=== PATIENT | male | born 1940 | race Caucasian/White ===

== ENCOUNTER 2017-03-15 13:42 | Emergency (ER) | payer MEDICARE, BC, SELFPAY | END 2017-03-15 17:43 | disposition short-term general hospital (02) | PROVIDERS: Emergency Provider Emergency Medicine; Family Provider Internal Medicine Adolescent Medicine; Visit Provider Emergency Medicine | DX: Z79.82 Long term (current) use of aspirin (principal); I10 Essential (primary) hypertension; E78.5 Hyperlipidemia, unspecified; Z79.4 Long term (current) use of insulin | CPT/HCPCS: 70450; 71020; 80053; 82550; 82553; 84484; 85025; 93005; 93041; 99285 ==

== ENCOUNTER 2017-04-17 08:31 | Outpatient (CLI) | payer MEDICARE, BC, SELFPAY ==
[2017-04-17 15:19] LABS: PHA INR Fingerstick 2.8 (0.9-1.1)
== END 2017-04-17 15:51 | disposition home or self-care (01) ==
LOC: ACC 08:33
PROVIDERS: Family Provider Internal Medicine Adolescent Medicine; PCP Internal Medicine Adolescent Medicine; Visit Provider Internal Medicine Adolescent Medicine
DX: I72.9 Aneurysm of unspecified site (principal); I63.9 Cerebral infarction, unspecified; Z79.01 Long term (current) use of anticoagulants
CPT/HCPCS: 85610; 99211; G0463

== ENCOUNTER 2017-06-11 10:30 | Outpatient (CLI) | payer MEDICARE, BC, SELFPAY ==
[2017-06-11 11:12] LABS: PHA INR Fingerstick 2.5 (0.9-1.1)
== END 2017-06-11 11:40 | disposition home or self-care (01) ==
LOC: ACC 10:31
PROVIDERS: PCP Internal Medicine Adolescent Medicine; Visit Provider Internal Medicine Adolescent Medicine
DX: Z79.01 Long term (current) use of anticoagulants (principal); Z51.81 Encounter for therapeutic drug level monitoring; I63.9 Cerebral infarction, unspecified
CPT/HCPCS: 85610; 99211; G0463

== ENCOUNTER 2017-07-24 08:59 | Outpatient (CLI) | payer MEDICARE, BC, SELFPAY ==
[2017-07-24 11:27] LABS: PHA INR Fingerstick 2.5 (0.9-1.1)
== END 2017-07-24 11:47 | disposition home or self-care (01) ==
LOC: ACC 09:01
PROVIDERS: PCP Internal Medicine Adolescent Medicine; Visit Provider Internal Medicine Adolescent Medicine
DX: Z79.01 Long term (current) use of anticoagulants (principal); Z51.81 Encounter for therapeutic drug level monitoring; I72.9 Aneurysm of unspecified site; Z86.73 Personal history of transient ischemic attack (TIA), and cerebral infarction without residual deficits
CPT/HCPCS: 85610; 99211; G0463

== ENCOUNTER → 2017-08-02 09:44 | Outpatient (CLI) | payer MEDICARE, BC, SELFPAY ==
[2017-08-02 10:37] LABS: Basophils % 0.4 % (0.1-2.0); Eosinophils # 0.1 K/mm3 (0.0-0.4); Eosinophils % 1.8 % (0.1-12.0); Hematocrit 47.6 % (42.0-52.0); Hemoglobin 16.1 g/dL (14.1-18.0); Lymphocytes # 1.3 K/mm3 (0.7-4.5); Lymphocytes % 20.3 K/mm3 (10-50); Mean Corpuscular HGB Conc 33.7 g/dL (31.8-35.4); Mean Corpuscular Hemoglobin 31.7 pg (27.0-31.2); Mean Corpuscular Volume 93.9 fl (80-94); Mean Platelet Volume 9.1 fl (7.4-10.4); Monocytes # 0.5 K/mm3 (0.1-1.0); Monocytes % 8.6 % (1.7-9.3); Neutrophils # 4.2 K/mm3 (1.8-7.8); Neutrophils % 68.9 % (37.0-80.0); Platelet Count 152 K/mm3 (142-424); Red Blood Count 5.07 M/mm3 (4.60-6.20); Red Cell Distribution Width 12.9 % (11.5-17.5); White Blood Count 6.1 K/mm3 (4.8-10.8)
[2017-08-02 12:36] LABS: Alanine Aminotransferase 32 U/L (12-78); Albumin Level 3.8 gm/dL (3.4-5.0); Albumin/Globulin Ratio 1.3 (1.1-1.8); Alkaline Phosphatase 57 U/L (46-116); Anion Gap 17.3 mEq/L (5-15); Aspartate Amino Transferase 25 U/L (15-37); Bilirubin,Total 0.5 mg/dL (0.2-1.0); Blood Urea Nitrogen 13 mg/dL (7-18); Calcium 9.2 mg/dL (8.5-10.1); Carbon Dioxide 23 mmol/L (21.0-32.0); Chloride 106 mmol/L (98-107); Chol/HDL Ratio 3.7 (1-3.5); Cholesterol 140 mg/dL (140-200); Creatinine,Serum 0.84 mg/dL (0.70-1.30); Estimated Glomerular Filt Rate 89 ml/min (>60); Ferritin 244 ng/mL (8-388); GFR (African American) 107 ML/MIN (>60); Glucose 95 mg/dL (74-106); HDL Cholesterol 38 mg/dL (27-67); LDL Cholesterol 81 mg/dL (0-130); Magnesium 2.2 mg/dL (1.4-2.2); Potassium 4.3 mmoL/L (3.5-5.1); Sodium 142 mmol/L (136-145); Thyroid Stimulating Hormone 2.53 uIU/ml (0.358-3.740); Total Protein,Serum 6.8 gm/dL (6.4-8.2); Triglycerides 105 mg/dL (30-200); VLDL Cholesterol 21 mg/dL (0-40)
[2017-08-04 06:29] LABS: Vitamin B12 608 pg/mL (232-1245); Vitamin D 25 Hydroxy 42.3 ng/mL (30.0-100.0)
== END ==
PROVIDERS: Visit Provider Internal Medicine Adolescent Medicine
DX: M79.1 Myalgia (principal); E78.4 Other hyperlipidemia; M25.562 Pain in left knee
CPT/HCPCS: 36415; 80053; 80061; 82607; 82652; 82728; 83735; 84443; 85025

== ENCOUNTER 2017-09-18 08:42 | Outpatient (CLI) | payer MEDICARE, BC, SELFPAY ==
[2017-09-18 09:59] LABS: PHA INR Fingerstick 2.4 (0.9-1.1)
== END 2017-09-18 10:01 | disposition home or self-care (01) ==
LOC: ACC 08:43
PROVIDERS: Family Provider Internal Medicine Adolescent Medicine; PCP Internal Medicine Adolescent Medicine; Visit Provider Internal Medicine Adolescent Medicine
DX: Z79.01 Long term (current) use of anticoagulants (principal); Z51.81 Encounter for therapeutic drug level monitoring; I72.9 Aneurysm of unspecified site
CPT/HCPCS: 85610; 99211; G0463

== ENCOUNTER 2017-11-13 08:49 | Outpatient (CLI) | payer MEDICARE, BC, SELFPAY ==
[2017-11-13 13:36] LABS: PHA INR Fingerstick 2.2 (0.9-1.1)
== END 2017-11-13 13:46 | disposition home or self-care (01) ==
LOC: ACC 08:50
PROVIDERS: PCP Internal Medicine Adolescent Medicine; Visit Provider Internal Medicine Adolescent Medicine
DX: Z79.01 Long term (current) use of anticoagulants (principal); Z51.81 Encounter for therapeutic drug level monitoring
CPT/HCPCS: 85610; 99211; G0463

== ENCOUNTER 2018-02-03 08:37 | Outpatient (CLI) | payer MEDICARE, BC, SELFPAY ==
[2018-02-03 10:35] LABS: Basophils % 0.3 % (0.1-2.0); Eosinophils # 0.1 K/mm3 (0.0-0.4); Eosinophils % 1.8 % (0.1-12.0); Hematocrit 48.7 % (42.0-52.0); Hemoglobin 16.1 g/dL (14.1-18.0); Lymphocytes # 1.3 K/mm3 (0.7-4.5); Lymphocytes % 17.8 % (10-50); Mean Corpuscular HGB Conc 33.1 g/dL (31.8-35.4); Mean Corpuscular Hemoglobin 31.4 pg (27.0-31.2); Mean Corpuscular Volume 94.8 fl (80-94); Mean Platelet Volume 8.3 fl (7.4-10.4); Monocytes # 0.6 K/mm3 (0.1-1.0); Monocytes % 8.4 % (1.7-9.3); Neutrophils # 5.3 K/mm3 (1.8-7.8); Neutrophils % 71.7 % (37.0-80.0); Platelet Count 178 K/mm3 (142-424); Red Blood Count 5.13 M/mm3 (4.60-6.20); Red Cell Distribution Width 13.4 % (11.5-17.5); White Blood Count 7.4 K/mm3 (4.8-10.8)
[2018-02-03 12:12] LABS: Alanine Aminotransferase 28 U/L (12-78); Albumin Level 3.6 gm/dL (3.4-5.0); Albumin/Globulin Ratio 1.2 (1.1-1.8); Alkaline Phosphatase 65 U/L (46-116); Anion Gap 14.4 mEq/L (5-15); Aspartate Amino Transferase 23 U/L (15-37); Bilirubin,Total 0.6 mg/dL (0.2-1.0); Blood Urea Nitrogen 12 mg/dL (7-18); Calcium 8.6 mg/dL (8.5-10.1); Carbon Dioxide 27 mmol/L (21.0-32.0); Chloride 103 mmol/L (98-107); Estimated Glomerular Filt Rate 82 ml/min (>60); GFR (African American) 99 ML/MIN (>60); Glucose 83 mg/dL (74-106); Potassium 4.4 mmoL/L (3.5-5.1); Prostate Specific Ag Screen 6.8 ng/mL (0.0-4.0); Sodium 140 mmol/L (136-145); Thyroid Stimulating Hormone 2.55 uIU/ml (0.358-3.740); Total Protein,Serum 6.6 gm/dL (6.4-8.2)
[2018-02-03 15:27] LABS: PHA INR Fingerstick 1.8 (0.9-1.1)
[2018-02-03 16:38] LABS: Chol/HDL Ratio 3.6 (1-3.5); Cholesterol 130 mg/dL (140-200); HDL Cholesterol 36 mg/dL (27-67); LDL Cholesterol 71 mg/dL (0-130); Triglycerides 113 mg/dL (30-200); VLDL Cholesterol 23 mg/dL (0-40)
[2018-02-04 11:46] LABS: Vitamin B12 499 pg/mL (232-1245); Vitamin D 25 Hydroxy 48.2 ng/mL (30.0-100.0)
[2018-02-05 09:18] LABS: PSA, Free 0.91 ng/mL; Prostate Specific Ag 5.4 ng/mL (0.0-4.0)
== END 2018-02-03 15:36 | disposition home or self-care (01) ==
PROVIDERS: PCP Internal Medicine Adolescent Medicine; Visit Provider Internal Medicine Adolescent Medicine
DX: Z00.00 Encounter for general adult medical examination without abnormal findings (principal); E78.5 Hyperlipidemia, unspecified; I25.10 Atherosclerotic heart disease of native coronary artery without angina pectoris; R27.0 Ataxia, unspecified; Z51.81 Encounter for therapeutic drug level monitoring; Z79.01 Long term (current) use of anticoagulants; Z12.5 Encounter for screening for malignant neoplasm of prostate; R97.20 Elevated prostate specific antigen [PSA]
CPT/HCPCS: 36415; 80053; 80061; 82607; 82652; 84153; 84154; 84443; 85025; 85610; 99211; G0103; G0463

== ENCOUNTER 2018-03-26 07:59 | Outpatient (CLI) | payer MEDICARE, BC, SELFPAY ==
[2018-03-26 15:32] LABS: PHA INR Fingerstick 3.3 (0.9-1.1)
== END 2018-03-26 15:34 | disposition home or self-care (01) ==
LOC: ACC 08:01
PROVIDERS: PCP Internal Medicine Adolescent Medicine; Visit Provider Internal Medicine Adolescent Medicine
DX: Z51.81 Encounter for therapeutic drug level monitoring (principal); Z79.01 Long term (current) use of anticoagulants
CPT/HCPCS: 85610; 99211; G0463

== ENCOUNTER 2018-05-07 08:24 | Outpatient (CLI) | payer MEDICARE, BC, SELFPAY ==
[2018-05-07 15:08] LABS: PHA INR Fingerstick 2.7 (0.9-1.1)
== END 2018-05-07 15:11 | disposition home or self-care (01) ==
LOC: ACC 08:25
PROVIDERS: PCP Internal Medicine Adolescent Medicine; Visit Provider Internal Medicine Adolescent Medicine
DX: Z51.81 Encounter for therapeutic drug level monitoring (principal); Z79.01 Long term (current) use of anticoagulants
CPT/HCPCS: 85610; 99211; G0463

== ENCOUNTER 2018-06-18 08:35 | Outpatient (CLI) | payer MEDICARE, BC, SELFPAY ==
[2018-06-18 09:46] LABS: PHA INR Fingerstick 2.6 (0.9-1.1)
== END 2018-06-18 09:47 | disposition home or self-care (01) ==
LOC: ACC 08:36
PROVIDERS: PCP Internal Medicine Adolescent Medicine; Visit Provider Internal Medicine Adolescent Medicine
DX: Z51.81 Encounter for therapeutic drug level monitoring (principal); Z79.01 Long term (current) use of anticoagulants
CPT/HCPCS: 85610; 99211; G0463

== ENCOUNTER 2018-08-04 08:15 | Outpatient (CLI) | payer MEDICARE, BC, SELFPAY ==
[2018-08-04 10:06] LABS: Basophils % 0.3 % (0.1-2.0); Eosinophils # 0.1 K/mm3 (0.0-0.4); Eosinophils % 2.4 % (0.1-12.0); Hematocrit 48.7 % (42.0-52.0); Hemoglobin 16.5 g/dL (14.1-18.0); Lymphocytes # 1.4 K/mm3 (0.7-4.5); Lymphocytes % 23.9 % (10-50); Mean Corpuscular HGB Conc 33.8 g/dL (31.8-35.4); Mean Corpuscular Hemoglobin 31.9 pg (27.0-31.2); Mean Corpuscular Volume 94.5 fl (80-94); Mean Platelet Volume 9.2 fl (7.4-10.4); Monocytes # 0.6 K/mm3 (0.1-1.0); Monocytes % 10.8 % (1.7-9.3); Neutrophils # 3.7 K/mm3 (1.8-7.8); Neutrophils % 62.5 % (37.0-80.0); Platelet Count 180 K/mm3 (142-424); Red Blood Count 5.16 M/mm3 (4.60-6.20); Red Cell Distribution Width 12.9 % (11.5-17.5); White Blood Count 5.9 K/mm3 (4.8-10.8)
[2018-08-04 10:45] LABS: Alanine Aminotransferase 30 U/L (12-78); Albumin/Globulin Ratio 1.2 (1.1-1.8); Alkaline Phosphatase 78 U/L (46-116); Anion Gap 14.7 mEq/L (5-15); Aspartate Amino Transferase 16 U/L (15-37); Bilirubin,Total 0.6 mg/dL (0.2-1.0); Blood Urea Nitrogen 11 mg/dL (7-18); Calcium 8.8 mg/dL (8.5-10.1); Carbon Dioxide 28 mmol/L (21.0-32.0); Chloride 103 mmol/L (98-107); Chol/HDL Ratio 3.8 (1-3.5); Cholesterol 130 mg/dL (140-200); Creatinine,Serum 0.96 mg/dL (0.70-1.30); Estimated Glomerular Filt Rate 76 ml/min (>60); GFR (African American) 92 ML/MIN (>60); Globulin 3.4 gm/dl (1.3-3.2); Glucose 93 mg/dL (74-106); HDL Cholesterol 34 mg/dL (27-67); LDL Cholesterol 76 mg/dL (0-130); Potassium 4.7 mmoL/L (3.5-5.1); Sodium 141 mmol/L (136-145); Total Protein,Serum 7.4 gm/dL (6.4-8.2); Triglycerides 102 mg/dL (30-200); VLDL Cholesterol 20 mg/dL (0-40)
[2018-08-04 11:57] LABS: PHA INR Fingerstick 2.1 (0.9-1.1)
[2018-08-05 14:33] LABS: Vitamin B12 567 pg/mL (232-1245); Vitamin D 25 Hydroxy 74.1 ng/mL (30.0-100.0)
== END 2018-08-04 12:03 | disposition home or self-care (01) ==
LOC: ACC 08:16
PROVIDERS: PCP Internal Medicine Adolescent Medicine; Visit Provider Internal Medicine Adolescent Medicine
DX: Z00.00 Encounter for general adult medical examination without abnormal findings (principal); I10 Essential (primary) hypertension; E78.5 Hyperlipidemia, unspecified; E55.9 Vitamin D deficiency, unspecified; Z51.81 Encounter for therapeutic drug level monitoring; Z79.01 Long term (current) use of anticoagulants
CPT/HCPCS: 36415; 80053; 80061; 82607; 82652; 85025; 85610; 99211; G0463

== ENCOUNTER 2018-09-29 08:30 | Outpatient (CLI) | payer MEDICARE, BC, SELFPAY ==
[2018-09-29 11:51] LABS: PHA INR Fingerstick 2.1 (0.9-1.1)
== END 2018-09-29 12:03 | disposition home or self-care (01) ==
LOC: ACC 08:32
PROVIDERS: PCP Internal Medicine Adolescent Medicine; Visit Provider Internal Medicine Adolescent Medicine
DX: Z51.81 Encounter for therapeutic drug level monitoring (principal); Z79.01 Long term (current) use of anticoagulants
CPT/HCPCS: 85610; 99211; G0463

== ENCOUNTER 2018-12-08 08:31 | Outpatient (CLI) | payer MEDICARE, BC, SELFPAY ==
[2018-12-08 10:45] LABS: PHA INR Fingerstick 2.7 (0.9-1.1)
== END 2018-12-08 10:51 | disposition home or self-care (01) ==
LOC: ACC 08:32
PROVIDERS: PCP Internal Medicine Adolescent Medicine; Visit Provider Internal Medicine Adolescent Medicine
DX: Z51.81 Encounter for therapeutic drug level monitoring (principal); Z79.01 Long term (current) use of anticoagulants
CPT/HCPCS: 85610; 99211; G0463

== ENCOUNTER 2019-03-11 08:26 | Outpatient (CLI) | payer MEDICARE, BC, SELFPAY ==
[2019-03-11 10:10] LABS: Basophils # 0.1 K/mm3 (0-0.2); Basophils % 0.6 % (0.1-2.0); Eosinophils # 0.3 K/mm3 (0.0-0.4); Eosinophils % 3.9 % (0.1-12.0); Hematocrit 46.6 % (42.0-52.0); Hemoglobin 14.9 g/dL (14.1-18.0); Lymphocytes # 1.3 K/mm3 (0.7-4.5); Mean Corpuscular HGB Conc 31.9 g/dL (31.8-35.4); Mean Corpuscular Hemoglobin 31.3 pg (27.0-31.2); Mean Corpuscular Volume 98.1 fl (80-94); Mean Platelet Volume 8.6 fl (7.4-10.4); Monocytes # 0.7 K/mm3 (0.1-1.0); Monocytes % 8.6 % (1.7-9.3); Neutrophils # 5.9 K/mm3 (1.8-7.8); Neutrophils % 70.9 % (37.0-80.0); Platelet Count 260 K/mm3 (142-424); Red Blood Count 4.75 M/mm3 (4.60-6.20); Red Cell Distribution Width 13.6 % (11.5-17.5); White Blood Count 8.3 K/mm3 (4.8-10.8)
[2019-03-11 10:20] LABS: Prothrombin Time 32.4 seconds (9.4-11.8)
[2019-03-11 11:51] LABS: Alanine Aminotransferase 39 U/L (12-78); Albumin Level 3.3 gm/dL (3.4-5.0); Alkaline Phosphatase 58 U/L (46-116); Anion Gap 11.7 mEq/L (5-15); Aspartate Amino Transferase 27 U/L (15-37); Bilirubin,Total 0.4 mg/dL (0.2-1.0); Blood Urea Nitrogen 10 mg/dL (7-18); Calcium 8.3 mg/dL (8.5-10.1); Carbon Dioxide 29 mmol/L (21.0-32.0); Chloride 105 mmol/L (98-107); Chol/HDL Ratio 4.3 (1-3.5); Cholesterol 129 mg/dL (140-200); Creatinine,Serum 0.95 mg/dL (0.70-1.30); Estimated Glomerular Filt Rate 76 ml/min (>60); GFR (African American) 93 ML/MIN (>60); Globulin 3.2 gm/dl (1.3-3.2); Glucose 89 mg/dL (74-106); HDL Cholesterol 30 mg/dL (27-67); LDL Cholesterol 79 mg/dL (0-130); Potassium 4.7 mmoL/L (3.5-5.1); Sodium 141 mmol/L (136-145); Thyroid Stimulating Hormone 2.19 uIU/ml (0.358-3.740); Total Protein,Serum 6.5 gm/dL (6.4-8.2); Triglycerides 100 mg/dL (30-200); VLDL Cholesterol 20 mg/dL (0-40)
[2019-03-11 14:10] LABS: PHA INR Fingerstick 3.4 (0.9-1.1)
== END 2019-03-11 14:12 | disposition home or self-care (01) ==
PROVIDERS: PCP Internal Medicine Adolescent Medicine; Visit Provider Internal Medicine Adolescent Medicine
DX: Z51.81 Encounter for therapeutic drug level monitoring (principal); Z79.01 Long term (current) use of anticoagulants; Z79.899 Other long term (current) drug therapy
CPT/HCPCS: 36415; 80053; 80061; 84443; 85025; 85610; 99211; G0463

== ENCOUNTER 2019-04-01 08:54 | Outpatient (CLI) | payer MEDICARE, BC, SELFPAY ==
[2019-04-01 10:49] LABS: PHA INR Fingerstick 2.5 (0.9-1.1)
== END 2019-04-01 10:55 | disposition home or self-care (01) ==
LOC: ACC 08:55
PROVIDERS: PCP Internal Medicine Adolescent Medicine; Visit Provider Internal Medicine Adolescent Medicine
DX: Z51.81 Encounter for therapeutic drug level monitoring (principal); Z79.01 Long term (current) use of anticoagulants
CPT/HCPCS: 85610; 99211; G0463

== ENCOUNTER → 2019-12-09 10:03 | Outpatient (CLI) | payer MEDICARE, BC, SELFPAY ==
[2019-12-09 10:22] LABS: Basophils % 0.6 % (0.1-2.0); Eosinophils # 0.2 K/mm3 (0.0-0.4); Eosinophils % 2.8 % (0.1-12.0); Hematocrit 46.9 % (42.0-52.0); Hemoglobin 16.5 g/dL (14.1-18.0); Lymphocytes # 1.2 K/mm3 (0.7-4.5); Lymphocytes % 20.8 % (10-50); Mean Corpuscular HGB Conc 35.1 g/dL (31.8-35.4); Mean Corpuscular Volume 94.2 fl (80-94); Mean Platelet Volume 9.8 fl (7.4-10.4); Monocytes # 0.6 K/mm3 (0.1-1.0); Monocytes % 10.9 % (1.7-9.3); Neutrophils # 3.7 K/mm3 (1.8-7.8); Neutrophils % 64.9 % (37.0-80.0); Platelet Count 161 K/mm3 (142-424); Red Blood Count 4.98 M/mm3 (4.60-6.20); Red Cell Distribution Width 13.5 % (11.5-17.5); White Blood Count 5.6 K/mm3 (4.8-10.8)
[2019-12-09 10:47] LABS: Chloride 102 mmol/L (98-107); Potassium 4.4 mmoL/L (3.5-5.1); Sodium 139 mmol/L (136-145)
[2019-12-09 10:49] LABS: Alanine Aminotransferase 16 U/L (12-78); Albumin Level 3.9 g/dl (3.5-5.0); Albumin/Globulin Ratio 1.7 (1.1-1.8); Alkaline Phosphatase 59 U/L (38-126); Anion Gap 13.4 mEq/L (5-15); Aspartate Amino Transferase 25 U/L (17-59); Bilirubin,Total 0.9 mg/dl (0.2-1.3); Blood Urea Nitrogen 13 mg/dl (9-20); Carbon Dioxide 28 mmol/L (22.0-30.0); Cholesterol 118 mg/dl (140-200); Estimated Glomerular Filt Rate 81 ml/min (>60); GFR (African American) 98 ML/MIN (>60); Globulin 2.3 g/dL (1.3-3.2); Total Protein,Serum 6.2 g/dl (6.3-8.2); Triglycerides 110 mg/dl (30-150); VLDL Cholesterol 22 mg/dL (0-40)
[2019-12-09 10:50] LABS: Calcium 9.1 mg/dl (8.4-10.2); Chol/HDL Ratio 3.7 (1-3.5); Glucose 100 mg/dl (74-100); HDL Cholesterol 32 mg/dl (40-60); Magnesium 2.1 mg/dl (1.6-2.3)
[2019-12-09 11:20] LABS: 25-OH Vitamin D, Total 105 ng/mL (30-100); Thyroid Stimulating Hormone 3.07 uIU/mL (0.465-4.68)
[2019-12-09 11:52] LABS: Vitamin B12 469 pg/mL (239-931)
== END ==
PROVIDERS: Visit Provider Internal Medicine Adolescent Medicine
DX: R42 Dizziness and giddiness (principal); I25.10 Atherosclerotic heart disease of native coronary artery without angina pectoris; E78.5 Hyperlipidemia, unspecified; E55.9 Vitamin D deficiency, unspecified
CPT/HCPCS: 36415; 80053; 80061; 82306; 82607; 83735; 84443; 85025

== ENCOUNTER → 2020-04-07 10:06 | Outpatient (CLI) | payer MEDICARE, BC, SELFPAY ==
[2020-04-07 10:44] LABS: Basophils % 0.5 % (0.1-2.0); Eosinophils # 0.1 K/mm3 (0.0-0.4); Eosinophils % 2.2 % (0.1-12.0); Hematocrit 54.5 % (42.0-52.0); Lymphocytes # 1.3 K/mm3 (0.7-4.5); Lymphocytes % 21.2 % (10-50); Mean Corpuscular HGB Conc 33.4 g/dL (31.8-35.4); Mean Corpuscular Hemoglobin 32.3 pg (27.0-31.2); Mean Corpuscular Volume 96.5 fl (80-94); Monocytes # 0.5 K/mm3 (0.1-1.0); Monocytes % 8.2 % (1.7-9.3); Neutrophils # 4.2 K/mm3 (1.8-7.8); Platelet Count 183 K/mm3 (142-424); Red Blood Count 5.65 M/mm3 (4.60-6.20); Red Cell Distribution Width 13.5 % (11.5-17.5); White Blood Count 6.1 K/mm3 (4.8-10.8)
[2020-04-07 10:46] LABS: Hemoglobin 18.2 g/dL (14.1-18.0)
[2020-04-07 11:47] LABS: 25-OH Vitamin D, Total 93.5 ng/mL (30-100)
[2020-04-07 12:07] LABS: Chloride 101 mmol/L (98-107); Sodium 140 mmol/L (136-145)
[2020-04-07 12:08] LABS: Potassium 4.6 mmoL/L (3.5-5.1)
[2020-04-07 12:11] LABS: Anion Gap 16.6 mEq/L (5-15); Blood Urea Nitrogen 12 mg/dl (9-20); Calcium 10.2 mg/dl (8.4-10.2); Carbon Dioxide 27 mmol/L (22.0-30.0); Estimated Glomerular Filt Rate 93 ml/min (>60); GFR (African American) 113 ML/MIN (>60); Glucose 93 mg/dl (74-100)
== END ==
PROVIDERS: Visit Provider Internal Medicine Adolescent Medicine
DX: I25.10 Atherosclerotic heart disease of native coronary artery without angina pectoris (principal); E55.9 Vitamin D deficiency, unspecified
CPT/HCPCS: 36415; 80048; 82306; 85025

== ENCOUNTER → 2020-10-20 11:05 | Outpatient (CLI) | payer MEDICARE, BC, SELFPAY ==
[2020-10-20 11:36] LABS: Basophils % 0.4 % (0.1-2.0); Eosinophils # 0.2 K/mm3 (0.0-0.4); Eosinophils % 3.3 % (0.1-12.0); Hematocrit 48.5 % (42.0-52.0); Hemoglobin 16.5 g/dL (14.1-18.0); Lymphocytes # 1.4 K/mm3 (0.7-4.5); Lymphocytes % 22.2 % (10-50); Mean Corpuscular HGB Conc 33.9 g/dL (31.8-35.4); Mean Corpuscular Hemoglobin 31.3 pg (27.0-31.2); Mean Corpuscular Volume 92.3 fl (80-94); Mean Platelet Volume 9.5 fl (7.4-10.4); Monocytes # 0.6 K/mm3 (0.1-1.0); Monocytes % 9.4 % (1.7-9.3); Neutrophils # 4.2 K/mm3 (1.8-7.8); Neutrophils % 64.7 % (37.0-80.0); Platelet Count 168 K/mm3 (142-424); Red Blood Count 5.25 M/mm3 (4.60-6.20); Red Cell Distribution Width 13.8 % (11.5-17.5); White Blood Count 6.4 K/mm3 (4.8-10.8)
[2020-10-20 11:56] LABS: Chloride 105 mmol/L (98-107); Potassium 4.9 mmoL/L (3.5-5.1); Sodium 140 mmol/L (136-145)
[2020-10-20 11:58] LABS: Alanine Aminotransferase 17 U/L (12-78); Alkaline Phosphatase 69 U/L (38-126); Aspartate Amino Transferase 26 U/L (17-59); Bilirubin,Total 0.9 mg/dl (0.2-1.3); Blood Urea Nitrogen 12 mg/dl (9-20); Estimated Glomerular Filt Rate 93 ml/min (>60); GFR (African American) 113 ML/MIN (>60)
[2020-10-20 11:59] LABS: Albumin Level 4.2 g/dl (3.5-5.0); Albumin/Globulin Ratio 1.7 (1.1-1.8); Anion Gap 11.9 mEq/L (5-15); Calcium 9.1 mg/dl (8.4-10.2); Carbon Dioxide 28 mmol/L (22.0-30.0); Chol/HDL Ratio 3.9 (1-3.5); Cholesterol 131 mg/dl (140-200); Globulin 2.5 g/dL (1.3-3.2); Glucose 86 mg/dl (74-100); HDL Cholesterol 34 mg/dl (40-60); Total Protein,Serum 6.7 g/dl (6.3-8.2); Triglycerides 97 mg/dl (30-150); VLDL Cholesterol 19 mg/dL (0-40)
[2020-10-20 12:10] LABS: Direct LDL Cholesterol 76.33 mg/dL (100-129)
[2020-10-20 12:15] LABS: 25-OH Vitamin D, Total 73.4 ng/mL (30-100)
== END ==
PROVIDERS: Visit Provider Internal Medicine Adolescent Medicine
DX: I25.10 Atherosclerotic heart disease of native coronary artery without angina pectoris (principal); E78.5 Hyperlipidemia, unspecified; E55.9 Vitamin D deficiency, unspecified
CPT/HCPCS: 36415; 80053; 80061; 82306; 85025

== ENCOUNTER 2023-03-07 06:56 | Day surgery (SDC) | payer MEDICARE, BC, SELFPAY ==
[2023-03-06 12:40] VITALS: BMI 25.8
[2023-03-07 07:14] VITALS: BP 106/58; PULSE 56; RESP 18; TEMP 36.2; O2SAT 94
--- NOTE | 2023-03-07 08:13 | EXP.OP.NOTE ---
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 His mid upper back was prepped and draped in a sterile fashion. After infiltration with local anesthetic an elliptical incision was made around the lesion. A combination of sharp dissection and electrocautery was utilized to transect through the deep subcutaneous tissue but not to the fascial margin. The lesion was excised in toto and passed off for pathologic evaluation after being marked for margin (short suture superior/long suture right lateral). Electrocautery was utilized to achieve hemostasis. Skin was reapproximated with interrupted 4-0 nylon in a mattress fashion. Dressings were applied and the patient was discharged in stable condition. Condition: stable Disposition: no change Specimens:: Mid upper back skin neoplasm Complications:: No immediate
[2023-03-07 08:15] VITALS: BP 116/72; PULSE 73; RESP 18; TEMP 36.6; O2SAT 97
== END 2023-03-07 08:20 | disposition home or self-care (01) ==
PROVIDERS: PCP Internal Medicine Adolescent Medicine; Visit Provider Surgery
PROC: (CPT 11603; principal; 2023-03-07 07:30)
DX: C44.519 Basal cell carcinoma of skin of other part of trunk (principal)
CPT/HCPCS: 11603; 88305

== ENCOUNTER 2023-12-18 06:01 | Day surgery (SDC) | payer MEDICARE, BC, SELFPAY ==
[2023-12-16 17:02] VITALS: BMI 26.7
[2023-12-18] MEDS: LACTATED RINGERS 1000ML 1,000 ML 25 ML IV (06:25)
[2023-12-18 06:32] VITALS: BP 106/65; PULSE 58; RESP 18; TEMP 36.4; O2SAT 96
--- NOTE | 2023-12-18 07:18 | EXP.ANES.CKL ---
[facility] Disclaimer: The information contained in this section may have been updated after the patient was seen, as this information can be updated by other users. Medical History History of VT (myocardial infarction) CVA (cerebral vascular accident) CAD (coronary artery disease) HLD (hyperlipidemia) Surgical History History of surgical removal of skin lesion History of coronary artery stent placement History of colonoscopy Family History Other Family history of heart disease Social History Smoking Status: Never smoker alcohol intake: former substance use type: denies use current occupational status: retired Travel in the last 8 weeks: None [facility] Anesthesia Checklist Patient Identification Patient Identification: Arm Band Structural Data Admitted From: Home Planned Operative Procedure/s: Anoscopy/Proctoscopy Consent for Planned Operative Procedure(s) Verified: Yes Verified Documents: Surgical Consent and History and Physical NPO Status Verified Time NPO: 00:00 Additional verifications Anesthesia Reactions: No Airway Assessment Mallampati Score:: Class II C-Spine Mobility Assessed: Yes TMJ Mobility Assessed: Yes Dentition: Edentulous Neurological Assessment Level of Consciousness: Awake, Alert and Appropriate Anesthesia Plan Anesthesia Risk discussed: Yes Anesthesia Plan: Verified ASA Class: III Anesthesia Type: MAC
--- NOTE | 2023-12-18 07:24 | [facility].SCOPE ---
Procedure: Date: 12/18/23 Patient Date of :: 1940 Procedure Performed:: Anoscopy Flexible proctoscopy Indications:: Bright red blood per rectum Anorectal mass Performing Provider:: Jalil Dickson MD Referring Provider:: Dr. Ya Sedation:: Monitored anesthesia care Procedure:: After informed consent was obtained the patient was taken to the endoscopy suite. Sedation ensued after the patient was transferred to the left lateral decubitus position. Pulse, blood pressure, and oxygen saturation were monitored throughout the procedure. Inspection and digital rectal exam revealed fairly large hemorrhoidal cushions was increased soft tissue thickening along the left margin. No firm/fixed mass lesion was palpable. Anoscopy revealed no additional findings. The colonoscope was placed in position and then advanced to the distal sigmoid colon. No mass lesions were noted. Retroflexion confirmed lateral tissue thickening and circumferential hemorrhoidal tissue. The colonoscope was carefully removed and the patient was transferred to recovery in stable condition. Please see findings and specimens below for detail. Findings:: Fairly large hemorrhoidal cushions Left lateral margin soft tissue thickening (consistent with likely inflamed hemorrhoidal tissue) No firm/fixed mass lesion Specimens:: None Recommendations:: Medical management/dietary management for hemorrhoidal disease Serial anorectal exams Consider dedicated CT versus MRI versus ultrasound if lateral soft tissue thickening does not resolve or if symptoms worsen Complications:: No immediate Estimated blood obtained (mL): 0 Colonoscopy Component Colonoscopy Component Was a colonoscopy performed during today's procedure?: No
[2023-12-18] MEDS: SODIUM PHOS/BIPHOSPHATE FLEET 133ML ENEMA 133 ML RC (07:25)
[2023-12-18 07:35] VITALS: O2SAT 96
[2023-12-18 07:54] VITALS: BP 98/58; PULSE 64; RESP 18; TEMP 36.2; O2SAT 94
[2023-12-18 08:14] VITALS: BP 101/54; PULSE 55; RESP 18; O2SAT 94
[2023-12-18 08:24] VITALS: BP 108/64; PULSE 57; RESP 18; O2SAT 92
[2023-12-18 08:34] VITALS: BP 112/74; PULSE 55; RESP 18; O2SAT 92
== END 2023-12-18 08:34 | disposition home or self-care (01) ==
PROVIDERS: PCP Internal Medicine Adolescent Medicine; Visit Provider Surgery
PROC: 0DJD8ZZ Inspection of Lower Intestinal Tract, Via Natural or Artificial Opening Endoscopic (ICD-10-PCS; CPT 45330; principal; 2023-12-18 07:30)
DX: K62.5 Hemorrhage of anus and rectum (principal); K64.9 Unspecified hemorrhoids
CPT/HCPCS: 45330; J7120